=== PATIENT | male | born 1995 | race African-American/Black ===

== ENCOUNTER 2019-02-22 21:55 | Emergency (ER) | payer OTHER ==
[2019-02-22] MEDS ORDERED: BUFFERED LIDOCAINE 10 ML SYRINGE ONE (22:11)
[2019-02-22] MEDS ORDERED: CEPHALEXIN 250 MG Prepack 8 CAP BOTTLE PO ONE (23:13)
[2019-02-22] MEDS ORDERED: HYDROcod/ACET 5/325 Prepack 4 PO ONE (23:14)
[2019-02-23 00:16] VITALS: BP 150/90
--- NOTE | 2019-02-23 00:25 | ED Physician Documentation ---
PD HPI UPPER EXT INJURY - Stated complaint Stated Complaint: FINGER INJ - Chief complaint Chief Complaint: Ext Problem - History obtained from History obtained from: Patient - History of Present Illness Location: Right (23yo male, AD ESTELA, crushed R MF at work. Mod pain, tet utd, no other inj) Review of Systems Constitutional: reports: Reviewed and negative Eyes: reports: Reviewed and negative Ears: reports: Reviewed and negative Nose: reports: Reviewed and negative PD PAST MEDICAL HISTORY - Past Medical History Past Medical History: No Cardiovascular: None Respiratory: None Neuro: None Endocrine/Autoimmune: None GI: None : None HEENT: None Psych: None Musculoskeletal: None Derm: None - Past Surgical History Past Surgical History: No - Allergies Allergies/Adverse Reactions: Allergies Allergy/AdvReac Type Severity Reaction Status Date / Time No Known Drug Allergies Allergy Verified 02/22/19 22:07 - Social History Does the pt smoke?: No Smoking Status: Never smoker Does the pt drink ETOH?: No Does the pt have substance abuse?: No - Immunizations Immunizations are current?: Yes - POLST Patient has POLST: No PD ED PE NORMAL - Vitals Vital signs reviewed: Yes - General General: Alert and oriented X 3, No acute distress - HEENT HEENT: PERRL, EOMI - Neck Neck: Supple, no meningeal sign - Extremities Extremities: Other (Open wound at tip of R mF with sone tissue loss. Nail ok. Some TTP NVI) - Neuro Neuro: Alert and oriented X 3, Normal speech - Psych Psych: Normal mood, Normal affect Results - Vitals Vitals: Vital Signs - 24 hr 02/22/19 22:02 Temperature 36.5 C Heart Rate 64 Respiratory 16 Rate Blood Pressure 150/90 H O2 Saturation 96 Oxygen O2 Source Room air - Rads (name of study) RMF XR Radiology: Discussed with rads, EMP read contemporaneously (open would with tuft frx and some bone loss) Procedures - Laceration (location) R MF Length in cm: 1.5 Wound type: Clean Neurovascular status: Sensory intact Anesthesia: Lidocaine 1%, With bicarb (digital block) Wound Preparation: Hibiclens, Irrigated copiously NS, Debrided extensively (it was into bone and gaping a bit and was rongeured after anesthetic and undermined to allow closure) Skin layer closure: Nylon, Interrupted, Size #-0 - enter number (4-0), Sutures - enter # Other: Tetanus UTD Complexity: Complex PD MEDICAL DECISION MAKING - ED course ED course: 23yo male AD ESTELA with crush injury RMF with open frx and bone and tissue loss to tip. Rongeured and allowed for lax closure and loose dressing placed. Close f/u with [facility] advised tomorrow. Given kepflex and hydrocodone prepack. Note all times in EMR are questionable as done during downtime. See paper dischg instruction and rxs (keflex and vicodin) Departure - Departure Disposition: 01 Home, Self Care Comments: see [facility] downtime for dx/rx/instructions
--- NOTE | 2019-02-23 11:19 | XRAY Report ---
Reason: RT FINGER PAIN/INJURY Procedure Date: 02/22/2019 Accession Number: [id number] / [id number] Procedure: XR - Finger(s) RT CPT Code: Final Report FULL RESULT: EXAM: RIGHT 3rd DIGIT RADIOGRAPHY EXAM DATE: 02/22/2019 10:25 PM. CLINICAL HISTORY: Trauma/injury. COMPARISON: None. TECHNIQUE: 3 views. FINDINGS: Bones: Small open tuft fracture and suspected small bony amputation at tip of third distal phalanx. No additional fractures. Joints: Normal. No subluxations. Soft Tissues: Soft tissue defect at tip of third digit. Ring is present on third digit. IMPRESSION: Soft tissue defect at tip of right third digit with underlying small open tuft fracture and suspected small bony amputation at tip of third distal phalanx. [facility] The above call report findings were discussed with ED Physician by Dr. Catherine Almonte at 11:04 PM on 02/22/2019.
== END 2019-02-22 23:20 | disposition home or self-care (01) ==
LOC: ED 21:55
DX: S62.632B Displaced fracture of distal phalanx of right middle finger, initial encounter for open fracture (principal); W23.1XXA Caught, crushed, jammed, or pinched between stationary objects, initial encounter; Y92.89 Other specified places as the place of occurrence of the external cause; Y99.1 Military activity
CPT/HCPCS: 13131; 73140